=== PATIENT | male | born 1930 | race Caucasian/White ===

== ENCOUNTER 2018-06-20 11:50 | Observation (INO) ==
[2018-06-20 12:27] LABS: Basophils # 0.1 K/mcL (0.0-0.2); Basophils % 0.9 %; Eosinophils # 0.8 K/mcL (0.0-0.6); Hematocrit 41.6 % (37.5-50.1); Hemoglobin 13.6 g/dL (12.9-16.9); Immature Granulocytes % 0.4 % (0-4); Lymphocytes # 1.8 K/mcL (0.6-4.6); Lymphocytes % 24.1 %; Mean Corpuscular HGB Conc 32.7 g/dL (31.6-35.5); Mean Corpuscular Hemoglobin 31.7 pg (28.0-33.3); Mean Platelet Volume 9.8 fL (9.4-12.4); Monocytes # 0.8 K/mcL (0.0-1.3); Monocytes % 10.4 %; Neutrophils # 4.1 K/mcL (1.6-8.9); Platelet Count 162 K/mcL (140-400); Red Blood Count 4.29 M/mcL (4.19-5.50); Red Cell Distribution Width 13.1 % (11.5-14.5); Segmented Neutrophils % 53.2 %
--- NOTE | 2018-06-20 12:42 | Emergency Department Note ---
Disposition Clinical Impression: Syncope Disposition: Admitted As Inpatient Condition: Fair Forms: ED Satisfaction Letter Time of Disposition: 13:30 General Adult HPI - General Chief complaint: ED Chest Pain Stated complaint: cp Time Seen by Provider: 06/20/18 12:04 Source: patient, EMS - History of Present Illness HPI Narrative: Patient presents emergency Department with chief complaint of a syncopal event. 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 He states that he was not feeling really well all morning but he had been fasting for blood work he has blood were drawn afterward they went out to breakfast ate a full meal, and has not had problems with significant low blood sugar in the past, and states that he ate a full meal after giving blood. He states that he cannot really tell me what he was feeling he just felt a little bit out of sorts today. He states that he does not remember what happened, the was at the store, and the storeroom keeper reportedly asked her if he was okay she turned around and saw him then slumped over backwards over the desk she does not believe he fell or his head states that he went slowly apparently they were talking to him and he was seemingly answering some questions during this, however the patient does not have any recollection of events during this. The patient denies any headache. He is on Coumadin for history of intermittent A. fib. He denies any chest pain shortness of breath palpitations he does have a pacemaker, he does not know physician defibrillator, however does not recall being shocked. He denies any abdominal pain nausea vomiting diarrhea black or bloody stool. Denies any urinary changes. The states he has chronic shortness of breath which she feels has been worsening very slowly over months but no changes of her last several days. He denies any increased orthopnea he denies any increased peripheral edema he denies any focal numbness or weakness. He denies any pain at all, and states that he has no idea exactly what happened but feels back to his baseline overall right now. Pain Scale: 0 - Related Data Previous Rx's Medication Instructions Recorded OxyCODONE/APAP 10/325 [Percocet 1 each PO Q6HR PRN #36 tablet 11/20/15 10/325 MG] Allergies Allergy/AdvReac Type Severity Reaction Status Date / Time No Known Allergies Allergy Verified 11/13/14 12:19 All systems ED: reviewed and negative except as stated. Review of Systems: As Per HPI Past Medical History - Past Medical History Medical history: Reports: coronary artery disease, diabetes, hypertension, myocardial infarction, valvular heart disease Psychiatric history: Reports: no psych history - Social History Smoking Status: Never smoker Smokeless Tobacco Status: No Alcohol use: Reports: none Drug use: Reports: none Physical Exam - General Limitations: no limitations General appearance: alert, in no apparent distress - Head Head exam: atraumatic, normocephalic - Eye Eye exam: Present: normal appearance, PERRL, EOMI, other (No conjunctival pallor or jaundice). Absent: scleral icterus, conjunctival injection - ENT ENT exam: normal exam, normal oropharynx - Neck Neck exam: Present: normal inspection, full ROM. Absent: meningismus, lymphadenopathy, thyromegaly - Chest Chest inspection: Present: normal inspection, symmetric chest wall rise - Respiratory Respiratory exam: Present: normal lung sounds bilaterally. Absent: respiratory distress, wheezes, accessory muscle use - Cardiovascular Cardiovascular exam: Present: regular rate, normal rhythm, systolic murmur. Absent: rubs, gallop, clicks - Abdominal Exam Abdominal exam: Present: soft, other (No palpable or pulsatile mass, no bruising on the abdomen, no rebound guarding or peritoneal sign, complete soft nontender abdomen without any palpable hernias or masses). Absent: Non-Tender - Extremities Exam Extremities exam: Present: normal inspection, full ROM, pedal edema (Trace bilateral lower extremity edema no unilateral swelling palpable cord calf tenderness without Homans sign or clinical evidence of DVT). Absent: tenderness, calf tenderness - Expanded Lower Extremity Exam Hip/Pelvis exam: Present: normal inspection, full ROM Knee exam: Present: normal inspection, full ROM Lower leg exam: Present: normal inspection, full ROM Ankle exam: Present: normal inspection, full ROM Foot/toe exam: Present: normal inspection, full ROM Neurovascular/Tendon exam: Present: normal capillary refill, other (Normal cranial nerves point no pronator drift speech). Absent: pulse deficit, motor deficit, sensory deficit - Back Exam Back exam: Present: normal inspection, full ROM. Absent: tenderness, CVA tende rness (R), CVA tenderness (L) - Neurological Exam Neurological exam: Present: alert, oriented X3, CN II-XII intact, reflexes normal, other (No pass point no pronator drift normal speech). Absent: motor sensory deficit - Psychiatric Psychiatric exam: Present: normal affect, normal mood - Skin Skin exam: Present: warm, dry, intact, normal color. Absent: rash, erythema, pallor, mottled Course Vital Signs Temperature 97.6 F 06/20/18 11:58 Pulse Rate 62 06/20/18 11:58 Respiratory Rate 19 06/20/18 11:58 Blood Pressure 175/86 06/20/18 11:58 O2 Sat by Pulse Oximetry 92 06/20/18 11:58 Temperature 97.6 F 06/20/18 11:58 Pulse Rate 62 06/20/18 11:58 Respiratory Rate 19 06/20/18 11:58 Blood Pressure 175/86 06/20/18 11:58 O2 Sat by Pulse Oximetry 92 06/20/18 11:58 Oxygen Delivery Oxygen Delivery Room Air Medical Decision Making - MDM Narrative Medical decision making narrative: Patient had an IV placed placed on the monitor EKG was performed which is electronic paced rhythm, with no evidence to suggest acute ST segment elevation myocardial infarction within a left bundle branch block type pattern from paced rhythm, no [place]ossa criterium compared to prior EKGchange. Basic laboratory studies were ordered head CT was ordered with patient on Coumadin syncope, chest x-ray was ordered. Patient will be observed in the emergency department, patient will require admission to the hospital for further evaluation and management spontaneous syncopal event pending workup. Basic laboratory studies were all within acceptable limits apart from an INR 4.0, patient had already been holding his Coumadin because his INR was checked 2 days ago as an outpatient and was 4.1. He has no evidence of active bleeding. No indication for reversal. Head CT and chest x-ray showed no acute abnormality as interpreted by radiology. Patient was admitted to the hospital for further evaluation and management of syncopal event - Lab Data Result diagrams: 06/20/18 12:09 06/20/18 12:09 Lab Results 06/20/18 06/20/18 06/20/18 Range/Units 12:09 12:09 12:09 WBC 7.6 (4.3-11.1) K/mcL RBC 4.29 (4.19-5.50) M/mcL Hgb 13.6 (12.9-16.9) g/dL Hct 41.6 (37.5-50.1) % MCV 97.0 (83.0-100.0) fL MCH 31.7 (28.0-33.3) pg MCHC 32.7 (31.6-35.5) g/dL RDW 13.1 (11.5-14.5) % Plt Count 162 (140-400) K/mcL MPV 9.8 (9.4-12.4) fL Immature Gran % 0.4 (0-4) % Seg Neutrophils % 53.2 % Lymphocytes % 24.1 % Monocytes % 10.4 % Eosinophils % 11.0 % Basophils % 0.9 % Neutrophils # 4.1 (1.6-8.9) K/mcL Lymphocytes # 1.8 (0.6-4.6) K/mcL Monocytes # 0.8 (0.0-1.3) K/mcL Eosinophils # 0.8 H (0.0-0.6) K/mcL Basophils # 0.1 (0.0-0.2) K/mcL PT (9.4-12.1) Seconds INR APTT (26.0-36.0) Seconds Sodium 139 (136-145) mEq/L Potassium 4.9 (3.5-5.1) mEq/L Chloride 105 (98-107) mEq/L Carbon Dioxide 26 (23-29) mEq/L BUN 27 H (8-23) mg/dL Creatinine 1.24 (0.70-1.30) mg/dL Est GFR ( Amer) > 60 (> 60) Est GFR (Non-Af Amer) 55 L (> 60) BUN/Creatinine Ratio 22 (6-26) Glucose 121 H (70-105) mg/dL Calculated Osmolality 294 (280-300) Calcium 8.9 (8.6-10.3) mg/dL Magnesium 2.1 (1.6-2.6) mg/dL Troponin I < 0.03 (< 0.04) ng/mL B-Natriuretic Peptide 181 H (Less than 100) pg/mL 06/20/18 Range/Units 12:09 WBC (4.3-11.1) K/mcL RBC (4.19-5.50) M/mcL Hgb (12.9-16.9) g/dL Hct (37.5-50.1) % MCV (83.0-100.0) fL MCH (28.0-33.3) pg MCHC (31.6-35.5) g/dL RDW (11.5-14.5) % Plt Count (140-400) K/mcL MPV (9.4-12.4) fL Immature Gran % (0-4) % Seg Neutrophils % % Lymphocytes % % Monocytes % % Eosinophils % % Basophils % % Neutrophils # (1.6-8.9) K/mcL Lymphocytes # (0.6-4.6) K/mcL Monocytes # (0.0-1.3) K/mcL Eosinophils # (0.0-0.6) K/mcL Basophils # (0.0-0.2) K/mcL PT 45.5 H* (9.4-12.1) Seconds INR 4.0 APTT 43.1 H (26.0-36.0) Seconds Sodium (136-145) mEq/L Potassium (3.5-5.1) mEq/L Chloride (98-107) mEq/L Carbon Dioxide (23-29) mEq/L BUN (8-23) mg/dL Creatinine (0.70-1.30) mg/dL Est GFR ( Amer) (> 60) Est GFR (Non-Af Amer) (> 60) BUN/Creatinine Ratio (6-26) Glucose (70-105) mg/dL Calculated Osmolality (280-300) Calcium (8.6-10.3) mg/dL Magnesium (1.6-2.6) mg/dL Troponin I (< 0.04) ng/mL B-Natriuretic Peptide (Less than 100) pg/mL
[2018-06-20 12:57] LABS: BUN/Creatinine Ratio 22 (6-26); Blood Urea Nitrogen 27 mg/dL (8-23); Calcium 8.9 mg/dL (8.6-10.3); Carbon Dioxide 26 mEq/L (23-29); Chloride 105 mEq/L (98-107); Glucose 121 mg/dL (70-105); Magnesium 2.1 mg/dL (1.6-2.6); Osmolality,Calculated 294 (280-300); Potassium 4.9 mEq/L (3.5-5.1); Sodium 139 mEq/L (136-145); Troponin I < 0.03 ng/mL (< 0.04); eGFR For Non-African Americans 55 (> 60)
[2018-06-20 13:10] LABS: Activated Partial Thrombo Time 43.1 Seconds (26.0-36.0)
[2018-06-20 13:14] LABS: Prothrombin Time 45.5 Seconds (9.4-12.1)
[2018-06-20] MEDS ORDERED: Naloxone 0.4 MG/ML INJ IVP PRN (14:11)
[2018-06-20] MEDS ORDERED: D5% in Water 1,000 ML IVC PRN (14:15)
[2018-06-20] MEDS ORDERED: *HR* Dextrose 50 % in Water (Syg) 50 ML SYRINGE IVP PRN (14:15)
[2018-06-20] MEDS ORDERED: Dextrose Gel 15 GM/37.5 ML TUBE PO PRN ×2 (14:15)
[2018-06-20] MEDS ORDERED: 0.9 % Sodium Chloride 1,000 ML IVC SCH (14:15)
--- NOTE | 2018-06-20 14:42 | Internal Med History&Physical ---
Date of Encounter: 06/20/18 Time of Encounter: 14:00 Internal Medicine - H&P: HPI Chief complaint: Passing out today History of present illness: Mr. Gracia is a 88 year old male with pmh of afib, CAD s/p CABG, hypertension presenting with complaints of passing out today. Patient denies any acute complaints and says he had been feeling fine prior to passing out. Patient was at a store with his and apparently had been standing up for about 30minutes when he was observed to be slumped over backwards on a table. Denies any inciting events, any fevers or chills. He recovered consciousness shortly afterwards and says he feels fine now. he was brought to the ER. In the ER, a CXR and a CT head showed no acute findings. He is being admitted for further syncopal work up Past Med Surg Social Fam HX - Past Medical History Medical history: coronary artery disease, diabetes, hypertension, myocardial infarction, valvular heart disease Psychiatric history: no psych history - Past Surgical History Additional surgical history: cabgx4. heart valve replacement - Social History Smoking Status: Never smoker Smokeless Tobacco Status: No Alcohol use: none Drug use: none Internal Medicine - H&P: Meds OxyCODONE/APAP 10/325 [Percocet 10/325 MG] 1 each PO Q6HR PRN #36 tablet 6 [Rx] Allergy/AdvReac Type Severity Reaction Status Date / Time No Known Allergies Allergy Verified 11/13/14 12:19 All Systems PM: A 10-system review of systems was performed and is negative for pertinent findings except as documented above in the HPI. - Constitutional Constitutional: no chills, no fever(s), no night sweats - EENT Eyes: no change in vision, no discharge, no pain, no photophobia Ears: no ear discharge, no ear pain, no tinnitus Nose, mouth and throat: no dysphagia, no nasal discharge, no neck pain, no sore throat - Cardiovascular Cardiovascular ROS IM: no chest pain, no diaphoresis, no dyspnea, no lightheadedness, no palpitations, no syncope - Respiratory Respiratory: no cough, no dyspnea, no wheezing, no excessive phlegm production - Gastrointestinal Gastrointestinal: no abdominal pain, no diarrhea, no hematemesis, no hematochezia, no melena, no nausea, no vomiting - Musculoskeletal Musculoskeletal ROS IM: no numbness, no tingling - Integumentary Integumentary IM: no rash, no unusual bruising - Neurological Neurological ROS: dizziness, no confusion, no convulsions, no focal weakness, no numbness, no tingling, no tremor(s) - Hematologic/Lymphatic Hematologic/Lymphatic: no easy bruising - Constitutional Vitals: Temp Pulse Resp BP Pulse Ox 97.6 F 60 17 162/77 99 06/20/18 11:58 06/20/18 13:56 06/20/18 13:56 06/20/18 13:56 06/20/18 13:56 Exam: NAD - Head Head exam: Present: atraumatic, normocephalic - Eye Eye exam: Present: PERRL, conjuntiva pink, sclera anicteric Pupils: Present: PERRL - Neck Neck exam general surgery: Present: supple, trachea midline. Absent: lymphadenopathy - Respiratory Respiratory exam: Present: CTAB. Absent: accessory muscle use, rales, rhonchi, wheezes - Cardiovascular Cardiovascular exam: Present: RRR, +S1, +S2. Absent: diastolic murmur, gallop, rubs, systolic murmur - GI/Abdominal GI/Abdominal exam: Present: normal bowel sounds, soft, no peritoneal signs. Absent: distended, tenderness - Extremities Exam Extremities exam: Present: warm, radial pulses palpable and symmetrical. Absent: calf tenderness, cyanotic, pedal edema - Neurological Exam Neurological exam: Present: CN II-XII intact, oriented X3, no focal deficits. Absent: pronater drift, facial droop, speech deficit - Skin Skin exam: Present: dry, intact Internal Med - H&P Results - Labs CBC & Chem 7: 06/20/18 12:09 06/20/18 12:09 Labs: Short CBC 06/20/18 Range/Units 12:09 WBC 7.6 (4.3-11.1) K/mcL Hgb 13.6 (12.9-16.9) g/dL Hct 41.6 (37.5-50.1) % Plt Count 162 (140-400) K/mcL Neutrophils # 4.1 (1.6-8.9) K/mcL BMP 06/20/18 12:09 Sodium 139 Potassium 4.9 Chloride 105 Carbon Dioxide 26 BUN 27 H Creatinine 1.24 Glucose 121 H Calcium 8.9 Cardiac Enzymes 06/20/18 Range/Units 12:09 Troponin I < 0.03 (< 0.04) ng/mL - Impressions ITS Impressions Chest X-Ray 06/20/18 12:03 IMPRESSION: No evidence for acute cardiopulmonary process. D/ / Patrick Razo MD / Patrick Razo MD Interpreting Provider: Patrick Razo MD Head CT 06/20/18 12:21 IMPRESSION: No acute intracranial abnormality. Diffuse atrophic changes with findings suggesting chronic microvascular ischemia D/ / Lucian Verdugo MD / Lucian Verdugo MD Interpreting Provider: Lucian Verdugo MD - Assessment and Plan (1) Syncope Current Visit: Yes Status: Acute Assessment and plan: Pt comes in with passing out after standing for 30minutes per . Likely vasovagal vs dehydration Hydrate gently with IV fluids. Last echo about 6 months ago showed preserved EF Obtain carotid ultrasound Qualifiers: Qualified Code(s): R55 - Syncope and collapse (2) Afib Current Visit: Yes Status: Acute Assessment and plan: Continue coreg. Hod coumadin 2/2 to supratherapeutic INR Qualifiers: Qualified Code(s): I48.91 - Unspecified atrial fibrillation (3) CAD (coronary artery disease) Current Visit: Yes Status: Acute Assessment and plan: Continue aspirin Qualifiers: Qualified Code(s): I25.10 - Atherosclerotic heart disease of [place] coronary artery without angina pectoris (4) Supratherapeutic INR Current Visit: Yes Status: Acute Assessment and plan: Hold coumadin due to INR of 4. No active bleeding (5) DVT prophylaxis Current Visit: Yes Status: Acute Assessment and plan: INR supratherapeutic - Time Spent With Patient Total time spent is greater than 50% in coordination of care (as documented) at patient's floor/unit and/or counseling patient:
[2018-06-20 16:04] LABS: Estimated Average Glucose 137 mg/dl; Hemoglobin A1C 6.4 %
[2018-06-20] MEDS ORDERED: *HR* Labetalol 20 MG/4 ML SYRINGE IVP ONE ×2 (16:57→23:41)
[2018-06-20] MEDS: Insulin LISPRO 300 UNITS/3 ML VIAL SQ SCH (17:04)
[2018-06-20] MEDS: 0.9 % Sodium Chloride 1,000 ML IVC SCH (18:03)
[2018-06-21 03:36] LABS: Basophils # 0.1 K/mcL (0.0-0.2); Basophils % 0.7 %; Eosinophils # 0.7 K/mcL (0.0-0.6); Eosinophils % 10.6 %; Immature Granulocytes % 0.3 % (0-4); Lymphocytes % 29.4 %; Mean Corpuscular HGB Conc 32.4 g/dL (31.6-35.5); Mean Corpuscular Hemoglobin 31.4 pg (28.0-33.3); Mean Corpuscular Volume 97.1 fL (83.0-100.0); Mean Platelet Volume 9.8 fL (9.4-12.4); Monocytes # 0.8 K/mcL (0.0-1.3); Monocytes % 11.4 %; Neutrophils # 3.3 K/mcL (1.6-8.9); Platelet Count 130 K/mcL (140-400); Red Cell Distribution Width 13.1 % (11.5-14.5); Segmented Neutrophils % 47.6 %
[2018-06-21 03:52] LABS: BUN/Creatinine Ratio 31 (6-26); Blood Urea Nitrogen 31 mg/dL (8-23); Calcium 8.1 mg/dL (8.6-10.3); Carbon Dioxide 26 mEq/L (23-29); Chloride 108 mEq/L (98-107); Glucose 92 mg/dL (70-105); Magnesium 1.9 mg/dL (1.6-2.6); Osmolality,Calculated 296 (280-300); Phosphorous 3.2 mg/dL (2.7-4.5); Potassium 3.8 mEq/L (3.5-5.1); Sodium 140 mEq/L (136-145); eGFR For Non-African Americans > 60 (> 60)
[2018-06-21] MEDS: 0.9 % Sodium Chloride 1,000 ML IVC SCH (04:41)
[2018-06-21] MEDS: Insulin LISPRO 300 UNITS/3 ML VIAL SQ SCH (07:52)
[2018-06-21] MEDS ORDERED: Aspirin 81 MG TAB.CHEW PO SCH (09:00)
[2018-06-21] MEDS ORDERED: amLODIPine 5 MG TABLET PO SCH (09:00)
[2018-06-21] MEDS ORDERED: Lisinopril 20 MG TABLET PO SCH (09:00)
[2018-06-21] MEDS ORDERED: Magnesium Oxide 400 MG TABLET PO SCH (09:00)
[2018-06-21 10:54] LABS: INR 2.3
--- NOTE | 2018-06-21 11:20 | Discharge Summary ---
- NOTES TO OUTPATIENT PROVIDER Notes to Outpatient Provider: f/u with PCP in one week. Please start taking Norvasc 5mg and Lisinopril 20mg PO Daily for your uncontrolled BP Date of Encounter: 06/21/18 Time of Encounter: 11:15 - Discharge Diagnosis (1) Syncope Priority: Primary Status: Acute Qualifiers: Qualified Code(s): R55 - Syncope and collapse (2) Afib Priority: Secondary Status: Acute Qualifiers: Qualified Code(s): I48.91 - Unspecified atrial fibrillation (3) CAD (coronary artery disease) Priority: Secondary Status: Acute Qualifiers: Qualified Code(s): I25.10 - Atherosclerotic heart disease of [place] coronary artery without angina pectoris (4) DVT prophylaxis Priority: Secondary Status: Acute (5) Supratherapeutic INR Priority: Secondary Status: Acute Hospital course: Mr. Gracia is a 88 year old male with pmh of afib, CAD s/p CABG, hypertension presented to ER with complaints of passing out at a local furniture store. Denied any seizure activity and he did felt lightheadedness / dizzy before he passed out. Patient denies any acute complaints and says he had been feeling fine prior to passing out. Apparently had been standing up for about 30minutes when he was observed to be slumped over backwards on a table. In the ER, a CXR and a CT head showed no acute findings. He was admitted in the hospital and placed him on cardiac sonographer. His his serial troponin came back as negative. His carotid Doppler showed 60-79% and 40-59% stenosis in right ICA. He does have uncontrolled BP too. So adjusted his medication added Norvasc 5mg and Lisinopril 20mg. - Time Spent with Patient Total time spent providing and/or coordinating discharge services: - Discharge Medications Prescriptions: New amLODIPine [Norvasc] 5 mg PO DAILY #30 tablet Lisinopril [Zestril] 20 mg PO DAILY #30 tablet Continued Ferrous Sulfate [Iron] 325 mg PO DAILY Warfarin [Coumadin] 4 mg PO 1800 Magnesium Oxide [Magnesium] 400 mg PO DAILY Donepezil HCl [Aricept] 5 mg PO HS Carvedilol [Coreg] 25 mg PO BID Aspirin [Adult Aspirin] 81 mg PO DAILY Lovastatin [Mevacor] 20 mg PO DAILY Home Medications: Aspirin [Adult Aspirin] 81 mg PO DAILY 06/21/18 [History] Carvedilol [Coreg] 25 mg PO BID 06/21/18 [History] Donepezil HCl [Aricept] 5 mg PO HS 06/21/18 [History] Ferrous Sulfate [Iron] 325 mg PO DAILY 06/21/18 [History] Lisinopril [Zestril] 20 mg PO DAILY #30 tablet 06/21/18 [Rx] Lovastatin [Mevacor] 20 mg PO DAILY 06/21/18 [History] Magnesium Oxide [Magnesium] 400 mg PO DAILY 06/21/18 [History] Warfarin [Coumadin] 4 mg PO 1800 06/21/18 [History] amLODIPine [Norvasc] 5 mg PO DAILY #30 tablet 06/21/18 [Rx] Allergies/Adverse Reactions: Allergy/AdvReac Type Severity Reaction Status Date / Time No Known Allergies Allergy Verified 11/13/14 12:19 Date of admission: 06/20/18 14:16 Primary care physician: Rick Solorzano DO - Constitutional Vitals: Temp Pulse Resp BP Pulse Ox 98.3 F 60 15 190/72 97 06/21/18 11:04 06/21/18 11:04 06/21/18 11:04 06/21/18 11:04 06/21/18 11:04 General appearance: Present: A&O X 3, no acute distress, answers questions appropriately Exam: Gen: Alert, awake, Oriented to time,place and person Chest: Diminished breath sounds B/L, No wheezing, No crackles, No rales Heart: S1S2+ RRR No murmurs Abd: Soft, NT, BS +, No organomegaly Ext: No edema, pulses are palpable, No calf tenderness Neuro : no focal neuro deficit noticed. Normal motor / sensory function Skin: No rash. - Patient Status Disposition: Home, Self-Care Condition: Good Overall status at discharge: patient is back to baseline - Discharge Instructions Follow Up With: Rick Solorzano DO [Primary Care Provider] - - Diet and Activity Activity: increase activity as tolerated
[2018-06-21 12:12] VITALS: BP 160/72
[2018-06-21] MEDS ORDERED: Warfarin perPT PO PRN (18:00)
[2018-06-21] MEDS ORDERED: *HR* Warfarin 5 MG TABLET PO ONE (18:00)
--- NOTE | 2018-06-22 09:33 | Electrocardiograph Report ---
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
== END 2018-06-21 13:46 | disposition home or self-care (01) ==
LOC: 3BNU 11:50 → EMEROOARM 11:50 → SUATTDRO 14:16 → 3BNU 15:20
PROVIDERS: ADMIT Internal Medicine; ATTEND Family Medicine